=== PATIENT | female | born 1965 | race Caucasian/White ===

== ENCOUNTER → 2017-06-30 | Outpatient (CLI) | payer MEDICAID | LOC: BRMIMAGING 11:26 | PROVIDERS: ATTEND Physician Assistant | DX: M79.671 Pain in right foot (principal); M77.31 Calcaneal spur, right foot | CPT/HCPCS: 73650-PO ==

== ENCOUNTER → 2017-12-28 | Outpatient (CLI) | payer MEDICAID | LOC: BRMIMAGING 11:23 | PROVIDERS: ATTEND Physician Assistant | DX: Z12.31 Encounter for screening mammogram for malignant neoplasm of breast (principal); Z80.3 Family history of malignant neoplasm of breast ==